=== PATIENT | female | born 1975 | race Caucasian/White ===

== ENCOUNTER 2017-07-19 03:54 | Emergency (ER) | payer BC ==
[~2017-07-19] VITALS: Ht 172.7 cm; Wt 95.3 kg
[~2017-07-19 03:54] MED LIST: ALBUTEROL INHAL17 GM IH; AMOXICILLIN 50500 MG PO; AZITHROMYCIN 2250 MG PO; CEPHALEXIN 500500 M3 PO; DIFLUCAN150 MG PO; ERYTHROMYCIN250 MG PO; FLAGYL500 MG PO; FLEXERIL PO; LITHIUM CARBON300 M3 PO; NAPROSYN500 MG PO; NORCO 5-325 TA1 EACH PO; PAXIL20 MG PO; PERCOCET 5-3251 EACH PO; SEROQUEL 50 MG50 MG PO; SEROQUEL PO; TRINATE TABLET1 TAB PO; ZOFRAN ODT4 MG PO; ZOLOFT 50 MG TA50 M1 PO; ZOLOFT25 MG
[2017-07-19] MEDS ORDERED: QUETIAPINE FUM100 MG PO (04:02)
[2017-07-19] MEDS ORDERED: PHENERGAN 25 MG25 M1 PO (05:07)
[2017-07-19 05:15] VITALS: BP 148/89
[2017-07-19] MEDS ORDERED: PROAIR HFA8.5 GM INH (05:16)
== END 2017-07-19 05:15 | disposition home or self-care (01) ==
LOC: M.ERS 03:54
DX: G43.909 Migraine, unspecified, not intractable, without status migrainosus (principal); F32.9 Major depressive disorder, single episode, unspecified; F17.210 Nicotine dependence, cigarettes, uncomplicated; Z88.5 Allergy status to narcotic agent; Z88.0 Allergy status to penicillin

== ENCOUNTER 2017-08-29 22:52 | Emergency (ER) | payer BC ==
[~2017-08-29] VITALS: Ht 172.7 cm; Wt 100.7 kg
[~2017-08-29 22:52] MED LIST changes: +PHENERGAN 25 MG25 M1 PO; +PROAIR HFA8.5 GM INH; +QUETIAPINE FUM100 MG PO
[2017-08-29 23:19] LABS: URINE BILIRUBIN NEGATIVE (Negative); URINE BLOOD NEGATIVE (Negative); URINE CLARITY CLEAR; URINE COLOR YELLOW; URINE GLUCOSE-RANDOM NEGATIVE (Negative); URINE KETONES NEGATIVE (Negative); URINE LEUKOCYTES-REFLEX NEGATIVE (Negative); URINE NITRITE-REFLEX NEGATIVE (Negative); URINE PROTEIN TRACE (Negative); URINE SPECIFIC GRAVITY >= 1.030 (1.005-1.030); URINE UROBILINOGEN 0.2 E.U./dl (0.2-1.0)
[2017-08-29 23:35] LABS: ABSOLUTE BASOPHILS 0.1 thou/uL (0.0-0.2); ABSOLUTE EOSINOPHILS 0.6 thou/uL (0.0-0.7); ABSOLUTE LYMPHOCYTES 2.4 thou/uL (0.8-5.3); ABSOLUTE MONOCYTES 0.9 thou/uL (0.0-1.2); ABSOLUTE NEUTROPHILS 5.4 thou/uL (1.6-8.1); BASOPHILS 0.8 %; EOSINOPHILS 6.1 %; HEMATOCRIT 38.9 % (37.0-47.0); HEMOGLOBIN 13.2 gm/dL (12.0-15.0); LYMPHOCYTES 25.6 %; MCH 30.1 pg (26.0-34.0); MCHC 33.9 g/dL (28.0-37.0); MCV 88.8 fL (80.0-100.0); MONOCYTES 9.8 %; MPV 8.7 fl. (7.2-11.1); NUCLEATED RBCS 0 /100WBC; PLATELET COUNT* 262 thou/uL (150-400); POLYS 57.7 %; RBC 4.38 mil/uL (4.20-5.00); RDW-CV 14.5 % (10.5-14.5); WBC 9.4 thou/uL (4.0-11.0)
[2017-08-29 23:40] LABS: CREATININE 0.7 mg/dL (0.6-1.3); POTASSIUM 3.4 mmol/L (3.5-5.1)
[2017-08-29 23:44] LABS: ALBUMIN 2.9 g/dL (3.4-5.0); TOTAL BILIRUBIN 0.1 mg/dL (<0.1-1.0); TOTAL PROTEIN 6.3 g/dL (6.4-8.2)
[2017-08-30] MEDS ORDERED: FLAGYL500 MG PO (00:52)
[2017-08-30] MEDS ORDERED: PROAIR HFA8.5 GM INH (00:52)
[2017-08-30] MEDS ORDERED: BENTYL 20 MG TA20 M1 PO (00:52)
[2017-08-30 01:07] VITALS: BP 145/77
== END 2017-08-30 01:09 | disposition home or self-care (01) ==
LOC: M.ERS 22:52
PROVIDERS: Nurse Practitioner Family
DX: K59.8 Other specified functional intestinal disorders (principal); R09.1 Pleurisy; R11.2 Nausea with vomiting, unspecified; F32.9 Major depressive disorder, single episode, unspecified; F17.210 Nicotine dependence, cigarettes, uncomplicated; Z88.5 Allergy status to narcotic agent; Z88.0 Allergy status to penicillin